=== PATIENT | female | born 1965 | race Caucasian/White ===

== ENCOUNTER 2019-04-19 12:50 | Emergency (ER) | payer OTHER ==
[~2019-04-19] VITALS: Ht 170.2 cm; Wt 86.2 kg
[2019-04-19] MEDS ORDERED: ASA5UEC PO (13:04)
[2019-04-19] MEDS ORDERED: CELEXA10 MG PO (13:04)
[2019-04-19] MEDS ORDERED: ONDANSETRON HCL4 M2 PO (14:15)
[2019-04-19] MEDS ORDERED: NORCO 5-325 TA1 EAC1 PO (14:15)
[2019-04-19 14:44] VITALS: BP 162/81
== END 2019-04-19 14:55 | disposition home or self-care (01) ==
LOC: ER 12:50
DX: S09.8XXA Other specified injuries of head, initial encounter (principal); Z88.1 Allergy status to other antibiotic agents; Z88.8 Allergy status to other drugs, medicaments and biological substances; W01.0XXA Fall on same level from slipping, tripping and stumbling without subsequent striking against object, initial encounter; Y93.89 Activity, other specified; Y92.89 Other specified places as the place of occurrence of the external cause; Y99.0 Civilian activity done for income or pay

== ENCOUNTER 2019-04-22 19:10 | Emergency (ER) | payer OTHER ==
[~2019-04-22] VITALS: Ht 170.2 cm; Wt 88.5 kg
[~2019-04-22 19:10] MED LIST: ASA5UEC PO; CELEXA10 MG PO; NORCO 5-325 TA1 EAC1 PO; ONDANSETRON HCL4 M2 PO
[2019-04-22] MEDS ORDERED: SUMATRIPTAN-NA1 EACH PO (20:36)
[2019-04-22] MEDS ORDERED: IBUPROFEN 800800 M1 PO (20:37)
[2019-04-23] MEDS ORDERED: OXYCODONE HCL 55 MG PO (00:42)
[2019-04-23 01:02] VITALS: BP 175/97
== END 2019-04-23 01:03 | disposition home or self-care (01) ==
LOC: ER 19:10
DX: F07.81 Postconcussional syndrome (principal); Z88.8 Allergy status to other drugs, medicaments and biological substances

== ENCOUNTER 2019-04-29 13:31 | Inpatient (IN) | payer OTHER ==
[~2019-04-29] VITALS: Ht 170.2 cm; Wt 88.5 kg
[~2019-04-29 13:31] MED LIST changes: +IBUPROFEN 800800 M1 PO; +OXYCODONE HCL 55 MG PO; +SUMATRIPTAN-NA1 EACH PO
[2019-04-29 13:37] VITALS: BP 206/122
[2019-04-29 14:26] LABS: BASOPHILS 0.6 % (0.0-2.0); EOSINOPHILS 3.2 % (0.0-3.0); HEMATOCRIT 40.3 % (37.0-47.0); HEMOGLOBIN 13.7 gm/dL (12.0-15.0); LYMPHOCYTES 21.9 % (24.0-44.0); MCV 85.2 fL (80.0-100.0); MONOCYTES 9.6 % (1.0-8.0); PLATELET COUNT 264 thou/uL (150-400); POLYS 64.7 % (36.0-66.0); RBC 4.73 mil/uL (4.20-5.00); RDW 13.5 % (10.5-14.5); WBC 6.1 thou/uL (4.0-11.0)
[2019-04-29 14:40] LABS: CALCIUM 8.7 mg/dL (8.5-10.1); CREATININE 0.8 mg/dL (0.6-1.0); POTASSIUM 3.4 mmol/L (3.5-5.1)
[2019-04-29 14:49] LABS: ALBUMIN 4.1 g/dL (3.4-5.0); TOTAL BILIRUBIN 0.7 mg/dL (<0.1-1.0); TOTAL PROTEIN 7.3 g/dL (6.4-8.2)
[2019-04-29 14:49] LABS: URINE BILIRUBIN NEGATIVE (Negative); URINE BLOOD NEGATIVE (Negative); URINE CLARITY CLEAR; URINE COLOR YELLOW; URINE GLUCOSE-RANDOM* NEGATIVE (Negative); URINE KETONES NEGATIVE (Negative); URINE LEUKOCYTES-REFLEX NEGATIVE (Negative); URINE NITRITE-REFLEX NEGATIVE (Negative); URINE PROTEIN (DIPSTICK) NEGATIVE (Negative)
[2019-04-29 15:03] LABS: MAGNESIUM 2.3 mg/dL (1.8-2.4); TROPONIN-I <0.06 ng/mL (<0.06)
[2019-04-29] MEDS ORDERED: AMLODIPINE BESY10 MG PO (15:21)
[2019-04-29] MEDS ORDERED: NITROGLYCERIN0.4 MG SUBLING (15:21)
[2019-04-29] MEDS ORDERED: COREG25 MG PO (15:21)
[2019-04-29] MEDS ORDERED: LISINOPRIL40 MG PO (15:21)
[2019-04-29] MEDS ORDERED: HYDROCHLOROTH12.5 M1 PO (15:21)
[2019-04-29 17:39] VITALS: BP 161/99
[2019-04-29 17:52] VITALS: BP 158/98
[2019-04-29 18:36] VITALS: BP 168/92
--- NOTE | 2019-04-29 19:23 | NUR ---
Received pt from the ER, with fiance at thebed side. Pt is complaining of a headache, ketoralac given no releif was noted. Admission requirements completed. Pt tried to have her dinner but only had as few bites. POC followed, endorsed to the night nurse.
[2019-04-29] MEDS ORDERED: CELEXA40 MG PO (19:59)
[2019-04-29 20:57] VITALS: BP 166/91
[2019-04-30 00:47] VITALS: BP 138/81
--- NOTE | 2019-04-30 04:04 | NUR ---
ASSESSMENT: PT REMAIN ALERT AND ORIENT TIMES FOUR. UP AD YADIEL TO BR WITH SBA. C/O CHAPMAN, RATING FROM 6-9/10 ON NUMERIC PAIN SCALE. PT STATE THAT THE LIGHT DOES NOT MAKE HER CHAPMAN WORSE AND SHE DENIES FEELING NAUSEA. PT STATE THAT TORADOL AND THE HYDROCODONE BARELY TAKES THE "EDGE OFF". DID GET A ONE TIME ORDER OF FENTANYL 25 MCG. BP ELEVATED AT THE BEGINNING OF THE SHIFT THAT DID DECREASE DURING THE NIGHT. AT THE BEDSIDE. TOLERATING PO INTAKE. NEURO WAS IN TO SEE PT THIS EVENING. NEURO ASSESSMENT DONE. PT C/O PAIN IN THE CAROTID AREA THAT RADIATE DOWN TOP OF SHOULDER FROM TIME TO TIME. SLOW PROGRESS, WILL CONTINUE TO MONITOR.
[2019-04-30 04:31] VITALS: BP 129/78
[2019-04-30 06:18] LABS: CALCIUM 8.6 mg/dL (8.5-10.1); CREATININE 0.8 mg/dL (0.6-1.0); POTASSIUM 3.8 mmol/L (3.5-5.1)
[2019-04-30 08:00] VITALS: BP 144/83
--- NOTE | 2019-04-30 11:01 | NUR ---
PT WENT FOR MRI AT THIS TIME.
[2019-04-30 16:00] VITALS: BP 127/76
[2019-04-30 20:02] VITALS: BP 184/96
[2019-04-30 21:00] VITALS: BP 107/58
--- NOTE | 2019-05-01 03:47 | NUR ---
ASSUMED CARE AROUND 1900. AXOX4. PERSISTENT HEADACHE. SEEN BY FROM NEUROLOGY. TORADOL D/C AND STARTED ON MEDROL PACK THIS SHIFT. NO S/S ACUTE DISTRESS NOTED OR REPORTED AT THIS TIME. WILL CONT TO MONITOR FOR ANY CHANGES IN CONDITION.
[2019-05-01 04:51] VITALS: BP 121/73
[2019-05-01] MEDS ORDERED: NORCO 5-325 TA1 EAC1 PO (09:01)
[2019-05-01] MEDS ORDERED: MEDROLDOSEPACK PO (09:01)
[2019-05-01 09:13] VITALS: BP 121/73
[2019-05-01 09:19] VITALS: BP 127/77
[2019-05-01 09:51] VITALS: BP 127/77
--- NOTE | 2019-05-01 10:04 | NUR ---
DIS PT DC. IV DC'D. DC PACKET AND MED SCRIPTS PROVIDED.
--- NOTE | 2019-05-01 19:47 | EKG ---
[address] [address] ELECTROCARDIOGRAM REPORT Name: MEREDITH JACKSONNA Room #: 464-P [facility] IN M.R.#: [id number] ������������������ Admission: 04/29/19 ������������������ Attend Phys: Pedro Jay MD Discharge: 05/01/19 ������������������ Date of : 65 Report #: [id number] ����������������������������������������������������������������� [id number] THIS REPORT FOR: //name// [facility] ED Test Date: 2019-04-29 Test Time: 13:41:22 Pat Name: CINTHIA JACKSON Department: Room: Pending sale to [facility] Gender: F Test Consultant: MERLYN : 1965 Requested By: Christopher Ritter Order Number: [id number] MD: Duane Baltazar Measurements Intervals [place] Rate: 98 P: 17 DC: 167 QRS: -19 QRSD: 97 T: 52 QT: 359 QTc: 459 Interpretive Statements Sinus rhythm Probable left atrial enlargement Left ventricular hypertrophy Inferior infarct, old Anterior Q waves, possibly due to LVH No previous ECG available for comparison Electronically Signed On 05-01-2019 19:47:15 CDT by Duane Baltazar [email or web address] ��������������������������������������������� <ELECTRONICALLY SIGNED> ���������������������������������������� By: Duane Baltazar MD ��������������������������������������������� 05/01/19 1947 1341 134 Duane Baltazar MD /EPI
== END 2019-05-01 10:09 | disposition home or self-care (01) | DRG 103 ==
LOC: ER 13:31 → EROBS 17:14 → 4W 18:12
PROVIDERS: Emergency Medicine; ADMIT Hospitalist
DX: G44.209 Tension-type headache, unspecified, not intractable (principal); I48.91 Unspecified atrial fibrillation; H57.02 Anisocoria; F07.81 Postconcussional syndrome; I10 Essential (primary) hypertension; G43.909 Migraine, unspecified, not intractable, without status migrainosus; Z88.1 Allergy status to other antibiotic agents; Z88.8 Allergy status to other drugs, medicaments and biological substances; Z79.82 Long term (current) use of aspirin; Z79.899 Other long term (current) drug therapy
CPT/HCPCS: 10040

== ENCOUNTER 2019-05-02 03:14 | Inpatient (IN) | payer OTHER ==
[~2019-05-02] VITALS: Ht 170.2 cm; Wt 86.2 kg
[~2019-05-02 03:14] MED LIST changes: +AMLODIPINE BESY10 MG PO; +CELEXA40 MG PO; +COREG25 MG PO; +HYDROCHLOROTH12.5 M1 PO; +LISINOPRIL40 MG PO; +MEDROLDOSEPACK PO; +NITROGLYCERIN0.4 MG SUBLING
[2019-05-02 03:57] LABS: ANION GAP 4 mmol/L (7-16); BUN 23 mg/dL (7-18); CALCIUM 9.6 mg/dL (8.5-10.1); CHLORIDE 95 mmol/L (98-107); CO2 24 mmol/L (21-32); CREATININE 0.9 mg/dL (0.6-1.0); GLUCOSE 205 mg/dL (74-106); POTASSIUM 4.4 mmol/L (3.5-5.1); SODIUM 123 mmol/L (136-145); TROPONIN-I <0.06 ng/mL (<0.06)
[2019-05-02 03:58] LABS: BASOPHILS 0.3 % (0.0-2.0); EOSINOPHILS 0.1 % (0.0-3.0); HEMATOCRIT 39.9 % (37.0-47.0); HEMOGLOBIN 13.7 gm/dL (12.0-15.0); LYMPHOCYTES 10.6 % (24.0-44.0); MCH 29.1 pg (26.0-34.0); MCHC 34.2 g/dL (28.0-37.0); MCV 85.1 fL (80.0-100.0); MONOCYTES 2.8 % (1.0-8.0); PLATELET COUNT 303 thou/uL (150-400); POLYS 86.2 % (36.0-66.0); RBC 4.69 mil/uL (4.20-5.00); RDW 13.2 % (10.5-14.5); WBC 10.4 thou/uL (4.0-11.0)
[2019-05-02 09:07] LABS: URINE CREATININE-RANDOM* 32.5 mg/dL
--- NOTE | 2019-05-02 12:40 | 2DMMODE ---
[facility] [place] [address] 2 D/M-MODE ECHOCARDIOGRAM Name: CINTHIA JACKSON Room #: 170-9 ADM IN ..#: [id number] ������������� Admission: 05/02/19 ������������� Attend Phys: Pedro Jay MD Discharge: ��� ������������� ��� Date of : 65 Date of Service: 05/02/19 1240 �� Report #: [id number] �������� ��������������������������������������������[id number] THIS REPORT FOR: //name// APPROVED REPORT Study performed: 05/02/2019 11:28:24 EXAM: Comprehensive 2D, Doppler, and color-flow Echocardiogram Patient Location: ER Room #: 9 Status: routine BSA: 1.98 HR: 96 bpm BP: 113/76 mmHg Rhythm: Atrial Fibrillation Other Information Study Quality: Fair Indications Atrial Fibrillation Hypertension/HDD Bicuspid Aortic Valve 2D Dimensions RVDd: 39.50 mm IVSd: 9.43 (7-11mm) LVOT Diam: 19.37 (18-24mm) LVDd: 43.55 mm PWd: 11.24 (7-11mm) Ascending Ao: 40.43 (22-36mm) LVDs: 27.51 (25-40mm) Aortic Root: 39.82 mm IVC: 14.00 mm Volumes Left Atrial Volume (Systole) Single Plane 4CH: 53.62 mL Single Plane 2CH: 61.24 mL LA ESV Index: 34.00 mL/m2 Aortic Valve AoV Peak Luca.: 1.93 m/s AO Peak Gr.: 23.52 mmHg LVOT Max P.51 mmHg LVOT Max V: 1.06 m/s ADELINE Vmax: 1.62 cm2 Mitral Valve MV Decel. Time: 129.73 ms [facility] [place] [address] 2 D/M-MODE ECHOCARDIOGRAM Name: CINTHIA JACKSON Room #: 1709 ADM IN [facility].#: [id number] ������������� Admission: 05/02/19 ������������� Attend Phys: Pedro Jay MD Discharge: ��� ������������� ��� Date of : 65 Date of Service: 05/02/19 1240 �� Report #: [id number] �������� ��������������������������������������������[id number] MV E Max Luca.: 0.96 m/s Pulmonary Valve PV Peak Luca.: 0.78 m/s PV Peak Gr.: 2.57 mmHg Tricuspid Valve TR Peak Luca.: 2.03 m/s TR Peak Gr.: 16.43 mmHg Left Ventricle The left ventricle is normal size. There is normal left ventricular wall thickness. The left ventricular systolic function is normal. The left ventricular ejection fraction is within the normal range. LVEF is 55-60%. This study is not technically sufficient to allow evaluation of the LV diastolic function due to atrial fibrillation. Right Ventricle The right ventricle is normal size. The right ventricular systolic function is normal. Atria The left atrium size is normal. The right atrium size is normal. Aortic Valve Aortic valve is bicuspid. Mild aortic regurgitation. There is no aortic valvular stenosis. Mitral Valve The mitral valve is normal in structure. Mild mitral regurgitation. No evidence of mitral valve stenosis. Tricuspid Valve The tricuspid valve is normal in structure. Mild tricuspid regurgitation. Estimated PAP is 21mmHg. Pulmonic Valve The pulmonary valve is normal in structure. Mild pulmonic regurgitation. Great Vessels Aortic root is mildly dilated. Ascending aorta is mildly dilated. IVC is normal in size and collapses >50% with inspiration. [facility] [place] [address] 2 D/M-MODE ECHOCARDIOGRAM Name: CINTHIA JACKSON Room #: 170-9 ADM IN M.R.#: [id number] ������������� Admission: 05/02/19 ������������� Attend Phys: Pedro Jay MD Discharge: ��� ������������� ��� Date of : 65 Date of Service: 05/02/19 1240 �� Report #: [id number] �������� ��������������������������������������������[id number] Pericardium There is no pericardial effusion. <Conclusion> The left ventricle is normal size. LVEF is 55-60%. Aortic valve is bicuspid. Mild aortic regurgitation. The mitral valve is normal in structure. Mild mitral regurgitation. The tricuspid valve is normal in structure. Mild tricuspid regurgitation. Estimated PAP is 21mmHg. The pulmonary valve is normal in structure. Mild pulmonic regurgitation. Aortic root is mildly dilated. Ascending aorta is mildly dilated. There is no pericardial effusion. ��������������������������������������������� <ELECTRONICALLY SIGNED> ���������������������������������������� By: Edil Barnes MD ��������������������������������������������� 05/02/19 1240 1240 1240 Edil Barnes MD /INF
[2019-05-02 15:08] VITALS: BP 118/81
--- NOTE | 2019-05-02 15:51 | NUR ---
PT ORIENTED TO ROOM AND UNIT. BED LOW AND LOCKED, SIDE RIALS UP X 3, CALL IGHT IN REACH. TELE APPLIED AND SAFETY LETTER GIVEN TO PATIENT. WILL CONTINUE TO ASSESS.
[2019-05-02 15:55] VITALS: BP 123/60
[2019-05-02 16:34] VITALS: BP 123/60
--- NOTE | 2019-05-02 18:28 | NUR ---
TALK TO DR. DELACRUZ AND OBTAINED ORDER FOR LOVENOX SQ AND SCDS PLACED BILATO ON PT.
[2019-05-02 20:24] VITALS: BP 102/65
--- NOTE | 2019-05-02 23:00 | NUR ---
PT SINUS NADINE RATE 49. CARDIZEM GTT STOPPED. VSS WILL CONT TO MONITOR.
[2019-05-03] VITALS: BP 107/66
[2019-05-03 04:59] VITALS: BP 131/79
[2019-05-03 05:37] LABS: CALCIUM 8.7 mg/dL (8.5-10.1); CREATININE 0.8 mg/dL (0.6-1.0); POTASSIUM 4.3 mmol/L (3.5-5.1)
--- NOTE | 2019-05-03 06:00 | NUR ---
PT RESTING QUIETLY. PAIN MEDS PRN. SLEPT AT INTERVALS TONIGHT. GETS UP TO TOILET. LUNGS CLEAR. REMAINS IN SINUS NADINE RATE 53. CARDIZEM GTT OFF SINCE 2299. PT IS SO THRILLED THAT SHE IS BACK TO A REGULAR RHYTHM. A VERY SWEET LITTLE LADY. WILL CONT TO MONITOR CLOSELY.
[2019-05-03 08:07] VITALS: BP 150/86
[2019-05-03 11:17] VITALS: BP 172/90
[2019-05-03 13:01] VITALS: BP 172/90
[2019-05-03] MEDS ORDERED: XARELTO20 MG PO (13:10)
[2019-05-03] MEDS ORDERED: ASA5UEC PO (13:11)
[2019-05-03] MEDS ORDERED: CARVEDILOL12.5 MG PO (13:11)
[2019-05-03] MEDS ORDERED: FLECAINIDE ACET50 M1 PO (13:11)
[2019-05-03] MEDS ORDERED: AMLODIPINE BESY10 MG PO (13:15)
[2019-05-03] MEDS ORDERED: LISINOPRIL40 MG PO (13:15)
[2019-05-03 13:52] VITALS: BP 172/90
--- NOTE | 2019-05-03 14:57 | NUR ---
ASSUMED CARE OF PT AT SHIFT CHANGE. ASSESSMENTS COMPLETED. VITALS STABLE. C/O PAIN IN NECK MANAGED WITH PO AND IV MEDS. SR ON MONITOR. LOOP RECORDER SITE CDI. DC ORDERS ACKNOWLEDGED. DC INSTRUCTIONS DISCUSSED WITH PT. UNDERSTANDING CONFIRMED. IV REMOVED, TELE REMOVED. PT LEFT UNIT AT APPROX 1450 WITH ALL BELONGINGS.
--- NOTE | 2019-05-03 15:21 | NUR ---
REVIEWED NURSE BARAHONA'S ASSESSMENTS, MEDICATION ADMINISTRATION, AND NOTES. AGREE WITH ASSESSMENTS, MEDS, AND NOTES.
--- NOTE | 2019-05-03 18:16 | EKG ---
[place] [address] [facility] [place] [address] ELECTROCARDIOGRAM REPORT Name: CINTHIA JACKSON Room #: 204-P [facility] IN M.R.#: [id number] ������������������ Admission: 05/02/19 ������������������ Attend Phys: Pedro Jay MD Discharge: 05/03/19 ������������������ Date of : 65 Report #: [id number] ����������������������������������������������������������������� [id number] THIS REPORT FOR: //name// [facility] ED Test Date: 2019-05-02 Test Time: 03:15:25 Pat Name: CINTHIA JACKSON Department: Room: [facility] Gender: F Accounts Payable Clerk: WINIFRED : 1965 Requested By: Pete Chew Order Number: [id number] MD: Lit Wang Measurements Intervals [place] Rate: 162 P: ND: QRS: -7 QRSD: 94 T: 81 QT: 250 QTc: 411 Interpretive Statements Atrial fibrillation Abnormal R-wave progression, late transition LVH with secondary repolarization abnormality Compared to ECG 04/29/2019 13:41:22 Atrial fibrillation has replaced sinus rhythm ST and T wave abnormality is more pronounced Electronically Signed On 05-03-2019 18:15:46 CDT by Lit Wang [email or web address] ��������������������������������������������� <ELECTRONICALLY SIGNED> ���������������������������������������� By: Lit Wang MD, [facility] ��������������������������������������������� 05/03/19 1815 4 Lit Wang MD, [facility] /EPI
--- NOTE | 2019-05-04 12:11 | P ---
[facility] [place] [address] [place] [address] PROCEDURE REPORT Name: CINTHIA JCAKSON Room #: 204-P [facility] IN M.R.#: [id number] Admission: 05/02/19 ������������������ Attend Phys: Pedro Jay MD Discharge: 05/03/19 ������������������ Date of : 65 Report #: [id number] THIS REPORT FOR: //name// CC: Pedro CASTILLO unknown PROCEDURE: LR implantation. PREOPERATIVE DIAGNOSIS: AFib. POSTOPERATIVE DIAGNOSIS: AFib. DESCRIPTION OF PROCEDURE: The patient underwent informed consent. She was prepped and draped in a sterile fashion. I injected lidocaine at the incision site. Incision was made. The device was injected under the skin. There was some continued bleeding. Therefore, I used a little electrocautery to take care of this. I performed 2 layers of suture and surgical glue to the outer skin layer. There were no procedure related complications. The implanted device was a Confirm model #3500, serial #[id number]. The device is set to its nominal settings. ��������������������������������������������� <ELECTRONICALLY SIGNED> ���������������������������������������� By: Duane Baltazar MD ��������������������������������������������� 05/04/19 1211 1130 1244 Duane Baltazar MD /nt
== END 2019-05-03 14:53 | disposition home or self-care (01) | DRG 261 ==
LOC: ER 03:14 → 2N 04:56 → EROBS 04:56 → 2N 15:47 → ENTRNSPT 05-03 14:35 → EDTRNSPTSTS 05-03 14:48 → 2N 05-03 14:53
PROVIDERS: Emergency Medicine; Nurse Practitioner Family; ADMIT Hospitalist
PROC: 0JH602Z Insertion of Monitoring Device into Chest Subcutaneous Tissue and Fascia, Open Approach (ICD-10-PCS; principal; 2019-05-03)
DX: I48.0 Paroxysmal atrial fibrillation (principal); E87.1 Hypo-osmolality and hyponatremia; Q23.1 Congenital insufficiency of aortic valve; I10 Essential (primary) hypertension; F32.9 Major depressive disorder, single episode, unspecified; R79.89 Other specified abnormal findings of blood chemistry; G43.909 Migraine, unspecified, not intractable, without status migrainosus; Z90.49 Acquired absence of other specified parts of digestive tract; Z98.891 History of uterine scar from previous surgery; Z90.710 Acquired absence of both cervix and uterus; Z79.82 Long term (current) use of aspirin; Z87.828 Personal history of other (healed) physical injury and trauma; Z79.899 Other long term (current) drug therapy; Z88.8 Allergy status to other drugs, medicaments and biological substances; Z82.3 Family history of stroke; Z81.1 Family history of alcohol abuse and dependence; Z82.49 Family history of ischemic heart disease and other diseases of the circulatory system
CPT/HCPCS: 10081

== ENCOUNTER 2019-11-28 20:08 | Emergency (ER) | payer OTHER ==
[~2019-11-28] VITALS: Ht 170.2 cm; Wt 86.2 kg
[~2019-11-28 20:08] MED LIST changes: +ACETAMINOPHEN500 MG PO; +ASA81BEC PO; +CARVEDILOL12.5 MG PO; +CELEXA 20 MG TA20 MG PO; +FLECAINIDE ACET50 M1 PO; +NITROSTAT0.4 MG SUBLING; +TRAMADOL 50 MG50 MG PO; +XARELTO20 MG PO; +ZESTRIL40 MG PO
[2019-11-28] MEDS ORDERED: PREDNISONE 10 M10 MG PO (21:10)
[2019-11-28] MEDS ORDERED: NORCO 5-325 TA1 EAC1 PO (21:10)
[2019-11-28] MEDS ORDERED: NORFLEX100 MG PO (21:10)
[2019-11-28 21:15] VITALS: BP 187/112
== END 2019-11-28 21:35 | disposition home or self-care (01) ==
LOC: ER 20:08
DX: M54.30 Sciatica, unspecified side (principal); M54.9 Dorsalgia, unspecified; I48.0 Paroxysmal atrial fibrillation; I10 Essential (primary) hypertension; Z88.4 Allergy status to anesthetic agent; Z88.8 Allergy status to other drugs, medicaments and biological substances

== ENCOUNTER 2019-12-26 18:34 | Emergency (ER) | payer OTHER ==
[~2019-12-26] VITALS: Ht 170.2 cm; Wt 86.2 kg
[~2019-12-26 18:34] MED LIST changes: +NORFLEX100 MG PO; +PREDNISONE 10 M10 MG PO
[2019-12-26] MEDS ORDERED: XARELTO20 MG PO (18:42)
[2019-12-26] MEDS ORDERED: NORVASC5 M1 PO (18:43)
[2019-12-26] MEDS ORDERED: PROTONIX40 M3 PO (18:44)
[2019-12-26 19:46] LABS: ABSOLUTE NEUTROPHILS 4.2 thou/uL (1.4-8.2); BASOPHILS 0.3 % (0.0-2.0); EOSINOPHILS 1.6 % (0.0-3.0); HEMATOCRIT 40.2 % (37.0-47.0); LYMPHOCYTES 31.2 % (24.0-44.0); MCHC 32.4 g/dL (28.0-37.0); MCV 86.2 fL (80.0-100.0); MONOCYTES 8.7 % (1.0-8.0); PLATELET COUNT 227 thou/uL (150-400); POLYS 58.2 % (36.0-66.0); RBC 4.66 mil/uL (4.20-5.00); RDW 14.2 % (10.5-14.5); WBC 7.1 thou/uL (4.0-11.0)
[2019-12-26 19:48] LABS: ANION GAP 3 mmol/L (7-16); BUN 22 mg/dL (7-18); CALCIUM 9.1 mg/dL (8.5-10.1); CHLORIDE 101 mmol/L (98-107); CO2 30 mmol/L (21-32); CREATININE 0.9 mg/dL (0.6-1.0); GLUCOSE 120 mg/dL (74-106); POTASSIUM 3.7 mmol/L (3.5-5.1); SODIUM 134 mmol/L (136-145)
[2019-12-26 19:58] LABS: ALBUMIN 4.1 g/dL (3.4-5.0); SGOT 16 U/L (15-37); SGPT 28 U/L (30-65); TOTAL BILIRUBIN 0.3 mg/dL (<0.1-1.0); TOTAL PROTEIN 7.1 g/dL (6.4-8.2); TROPONIN-I <0.06 ng/mL (<0.06)
[2019-12-26 21:14] VITALS: BP 134/80
--- NOTE | 2019-12-27 08:52 | EKG ---
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: NO : 1965 Requested By: Sonia Orona Order Number: [id number] MD: Lit Wang Measurements Intervals [place] Rate: 60 P: 12 ID: 180 QRS: -17 QRSD: 106 T: 4 QT: 433 QTc: 433 Interpretive Statements Sinus rhythm Abnormal R-wave progression, late transition Left ventricular hypertrophy Inferior infarct, old Lateral leads are also involved Compared to ECG 08/23/2019 06:57:39 No significant change was found Electronically Signed On 12-27-2019 8:50:47 CDT by Lit Wang [email or web address] <ELECTRONICALLY SIGNED> By: Lit Wang MD, [facility] 12/27/19 0850 13 13 Lit Wang MD, [facility] /EPI
--- NOTE | 2019-12-27 14:28 | EKG ---
[facility] [place] [address] ELECTROCARDIOGRAM REPORT Name: CINTHIA JACKSON Room #: DEP [facility]#: [id number] Admission: 12/26/19 Attend Phys: Discharge: 12/26/19 Date of : 65 Report #: [id number] THIS REPORT FOR: cc: ANNA - Linda family physician/PCP ANNA - Linda family physician/PCP Lit Wang MD [facility] THIS REPORT FOR: //name// [facility] ED Test Date: 2019-12-26 Test Time: 18:44:30 Pat Name: CINTHIA JACKSON Department: Room: Gender: Heel Reducer: : 1965 Requested By: Sonia Orona Order Number: [id number] MD: Lit Wang Measurements Intervals [place] Rate: 63 P: 8 MT: 177 QRS: -19 QRSD: 107 T: 10 QT: 434 QTc: 445 Interpretive Statements Sinus rhythm Abnormal R-wave progression, late transition Left ventricular hypertrophy Inferior infarct, old Lateral leads are also involved Baseline wander in lead(s) V2,V3,V5,V6 No previous ECGs available for comparison Electronically Signed On 12-27-2019 14:27:28 CDT by Lit Wang [email or web address] <ELECTRONICALLY SIGNED> By: Lit Wang MD, FAC 12/27/19 1427 1844 1844 Lit Wang MD, FAC /EPI
== END 2019-12-26 21:26 | disposition home or self-care (01) ==
LOC: ER 18:34
PROVIDERS: Physician Assistant
DX: J06.9 Acute upper respiratory infection, unspecified (principal); I48.91 Unspecified atrial fibrillation; I10 Essential (primary) hypertension; Z79.899 Other long term (current) drug therapy; Z79.82 Long term (current) use of aspirin; Z88.8 Allergy status to other drugs, medicaments and biological substances; Z88.1 Allergy status to other antibiotic agents

== ENCOUNTER 2020-07-31 19:25 | Inpatient (IN) | payer OTHER ==
[~2020-07-31] VITALS: Ht 170.2 cm; Wt 79.4 kg
[~2020-07-31 19:25] MED LIST changes: +NORVASC5 M1 PO; +PROTONIX40 M3 PO
[2020-07-31 19:29] VITALS: BP 142/81
[2020-07-31 20:08] LABS: ABSOLUTE NEUTROPHILS 4.5 thou/uL (1.4-8.2); BASOPHILS 0.4 % (0.0-2.0); EOSINOPHILS 4.1 % (0.0-3.0); HEMATOCRIT 37.2 % (37.0-47.0); HEMOGLOBIN 12.5 gm/dL (12.0-15.0); LYMPHOCYTES 28.6 % (24.0-44.0); MCH 28.6 pg (26.0-34.0); MCHC 33.6 g/dL (28.0-37.0); MCV 85.1 fL (80.0-100.0); MONOCYTES 9.1 % (1.0-8.0); PLATELET COUNT 277 thou/uL (150-400); POLYS 57.8 % (36.0-66.0); RBC 4.37 mil/uL (4.20-5.00); RDW 14.1 % (10.5-14.5); WBC 7.7 thou/uL (4.0-11.0)
[2020-07-31] MEDS ORDERED: TOPROL XL25 MG PO (20:12)
[2020-07-31] MEDS ORDERED: FLECAINIDE ACET50 M2 PO (20:12)
[2020-07-31] MEDS ORDERED: COLCRYS0.6 MG PO (20:14)
[2020-07-31] MEDS ORDERED: PERCOCET 5-3251 EACH PO ×2 (20:15→20:16)
[2020-07-31 20:18] LABS: ANION GAP 13 mmol/L (7-16); BUN 11 mg/dL (7-18); CHLORIDE 102 mmol/L (98-107); CO2 25 mmol/L (21-32); CREATININE 0.9 mg/dL (0.6-1.0); GLUCOSE 109 mg/dL (74-106); POTASSIUM 3.4 mmol/L (3.5-5.1); SODIUM 140 mmol/L (136-145)
[2020-07-31 20:28] LABS: ALBUMIN 4.2 g/dL (3.4-5.0); SGOT 20 U/L (15-37); SGPT 30 U/L (30-65); TOTAL BILIRUBIN 0.5 mg/dL (0.2-1.0); TOTAL PROTEIN 7.3 g/dL (6.4-8.2); TROPONIN-I <0.06 ng/mL (<0.06)
--- NOTE | 2020-07-31 21:31 | NUR ---
PT STATES MORPHINE CAUSES CHEST PAIN AND NAUSEA.
[2020-07-31 22:07] VITALS: BP 133/77
--- NOTE | 2020-07-31 22:13 | NUR ---
TRIED TO CALL REPORT. NURSE IS UNAVAILABLE.
[2020-07-31 22:54] VITALS: BP 120/75
[2020-08-01 05:50] VITALS: BP 98/68
--- NOTE | 2020-08-01 06:14 | NUR ---
ASSUME CARE 1900. PT/VITALS STABLE. INTERMITTENT CHEST PAIN NOTED WITH MODERATE RELIEF FROM PAIN MED. GOOD ENURANCE WITH ACTIVITY. SR ON MONITOR. NO DISTRESS NOTED. PT FOLLOWS WITH CARDIOLOGY TEAM AT [facility]. PLAN IS POSSIBLE TRANSFER TO [facility] TELE BED TODAY FOR CONTINUM OF CARE, SINCE THEY SAW PT JUST 3 DAYS AGO. WILL CONTINUE TO MONITOR AND FOLLOW WITH POC
[2020-08-01 07:00] VITALS: BP 108/64
--- NOTE | 2020-08-01 08:55 | EKG ---
[facility] [place] [address] [address] ELECTROCARDIOGRAM REPORT Name: CINTHIA JACKSON Room #: 200-I ADM IN M.R.#: [id number] Admission: 07/31/20 Attend Phys: Pedro Jay MD Discharge: Date of : 65 Report #: [id number] THIS REPORT FOR: cc: Tez Max MD, Andrea B. 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: : 1965 Requested By: Zelda Rodriguez Order Number: [id number] MD: Lit Wang Measurements Intervals [place] Rate: 74 P: 8 AL: 187 QRS: -20 QRSD: 100 T: 28 QT: 424 QTc: 471 Interpretive Statements Sinus rhythm Abnormal R-wave progression, late transition Left ventricular hypertrophy Inferior infarct, old Baseline wander in lead(s) V1 Compared to ECG 12/26/2019 19:14:33 No significant changes Electronically Signed On 08-01-2020 8:54:55 CDT by Lit Wang [email or web address] <ELECTRONICALLY SIGNED> By: Lit Wang MD, FACC 08/01/20 0854 36 36 Lit Wang MD, FACC /EPI
[2020-08-01] MEDS ORDERED: COLCRYS0.6 MG PO ×2 (10:23→10:45)
[2020-08-01] MEDS ORDERED: PROTONIX 20 MG20 M1 PO (10:23)
[2020-08-01] MEDS ORDERED: TRAMADOL 50 MG50 MG PO (10:23)
[2020-08-01 10:54] VITALS: BP 108/64
--- NOTE | 2020-08-01 11:44 | NUR ---
ASSUMED CARE PT SHIFT CHANGE. ASSESSMENT CHARTED.MEDS GIVEN PER DEC. PT ALERT AND ORIENTED.VSS. C/O CHEST PAIN MANAGED WITH PO AND IV PAIN MEDS. PT UP AD YADIEL TOLERATING WELL. PT PREFERS TO CONTINUE WITH CARE BEING RECEIVED FROM [place]. ST STABLE FOR DC PER PHYSICIAN. DC PAPERWORK DISCUSSED WITH PT. COMMUNICATES UNDERSTANDING. IV REMOVED TELE REMOVED PT LEFT UNIT WITH ALLBELONGINGS.
== END 2020-08-01 11:40 | disposition home or self-care (01) | DRG 316 ==
LOC: ER 19:25 → 2N 22:06 → EROBS 22:06 → 2N 22:39
PROVIDERS: Physician Assistant; ADMIT Hospitalist; ATTEND Hospitalist
DX: I31.9 Disease of pericardium, unspecified (principal); I71.9 Aortic aneurysm of unspecified site, without rupture; I48.0 Paroxysmal atrial fibrillation; I10 Essential (primary) hypertension; Z88.6 Allergy status to analgesic agent; Z88.8 Allergy status to other drugs, medicaments and biological substances; Z90.710 Acquired absence of both cervix and uterus; Z90.49 Acquired absence of other specified parts of digestive tract; Z82.49 Family history of ischemic heart disease and other diseases of the circulatory system; Z79.01 Long term (current) use of anticoagulants; Z79.82 Long term (current) use of aspirin; Z79.899 Other long term (current) drug therapy; Z81.1 Family history of alcohol abuse and dependence; Z82.3 Family history of stroke
CPT/HCPCS: 10081

== ENCOUNTER 2020-08-27 17:30 | Emergency (ER) | payer OTHER ==
[~2020-08-27] VITALS: Ht 170.2 cm; Wt 79.4 kg
[~2020-08-27 17:30] MED LIST changes: +COLCRYS0.6 MG PO; +FLECAINIDE ACET50 M2 PO; +PERCOCET 5-3251 EACH PO; +PROTONIX 20 MG20 M1 PO; +TOPROL XL25 MG PO
[2020-08-28] LABS: BASOPHILS 0.4 % (0.0-2.0); EOSINOPHILS 2.3 % (0.0-3.0); HEMATOCRIT 36.7 % (37.0-47.0); LYMPHOCYTES 22.1 % (24.0-44.0); MCH 28.3 pg (26.0-34.0); MCHC 32.8 g/dL (28.0-37.0); MCV 86.4 fL (80.0-100.0); MONOCYTES 6.5 % (1.0-8.0); PLATELET COUNT 287 thou/uL (150-400); POLYS 68.7 % (36.0-66.0); RBC 4.24 mil/uL (4.20-5.00); WBC 7.3 thou/uL (4.0-11.0)
[2020-08-28 00:01] LABS: CALCIUM 9.3 mg/dL (8.5-10.1); CREATININE 0.9 mg/dL (0.6-1.0); POTASSIUM 3.8 mmol/L (3.5-5.1)
[2020-08-28 00:07] LABS: ALBUMIN 4.1 g/dL (3.4-5.0); DIRECT BILIRUBIN 0.1 mg/dL (<0.1-0.2); TOTAL BILIRUBIN 0.4 mg/dL (0.2-1.0); TOTAL PROTEIN 7.7 g/dL (6.4-8.2)
[2020-08-28 00:09] LABS: APTT 26.4 Seconds (24.5-32.8); PROTIME 10.1 Seconds (9.3-11.4)
[2020-08-28 03:15] VITALS: BP 141/71
--- NOTE | 2020-08-28 10:02 | EKG ---
[facility] [place] [address] ELECTROCARDIOGRAM REPORT Name: CINTHIA JACKSON Room #: DEP [facility]#: [id number] Admission: 08/27/20 Attend Phys: Discharge: 08/28/20 Date of : 65 Report #: [id number] THIS REPORT FOR: cc: Tez Max MD, Andrea B. MD Santiago, Patrick MD [facility] ~ THIS REPORT FOR: //name// [facility] ED Test Date: 2020-08-27 Test Time: 23:52:30 Pat Name: CINTHIA JACKSON Department: Room: Gender: F Non Destructive Evaluation Manager: Shawna : 1965 Requested By: Tawanna Trevino Order Number: [id number] MD: Tommie Dickens Measurements Intervals [place] Rate: 81 P: 19 AR: 170 QRS: -25 QRSD: 99 T: 12 QT: 393 QTc: 457 Interpretive Statements Sinus rhythm Abnormal R-wave progression, late transition Left ventricular hypertrophy Inferior infarct, old Compared to ECG 07/31/2020 19:37:32 No significant changes Electronically Signed On 08-28-2020 10:01:52 AUTOMOTIVE PARTS COORDINATOR by Tommie Dickens [email or web address] <ELECTRONICALLY SIGNED> By: Tommie Dickens MD, FACC 08/28/20 1001 2352 2352 Tommie Dickens MD, FAC /EPI
== END 2020-08-28 03:15 | disposition home or self-care (01) ==
LOC: ER 17:30
PROVIDERS: Emergency Medicine
DX: R10.31 Right lower quadrant pain (principal); R10.32 Left lower quadrant pain; D68.62 Lupus anticoagulant syndrome; I10 Essential (primary) hypertension; I48.91 Unspecified atrial fibrillation; Z79.899 Other long term (current) drug therapy; Z88.1 Allergy status to other antibiotic agents; Z88.5 Allergy status to narcotic agent; Z88.8 Allergy status to other drugs, medicaments and biological substances

== ENCOUNTER 2020-10-13 23:40 | Emergency (ER) | payer OTHER ==
[~2020-10-13] VITALS: Ht 170.2 cm; Wt 81.7 kg
[2020-10-13] MEDS ORDERED: BUPROPION XL150 MG PO (23:58)
[2020-10-13] MEDS ORDERED: TRAMADOL 50 MG50 MG PO (23:58)
[2020-10-13] MEDS ORDERED: AMLODIPINE BESY10 MG PO (23:59)
[2020-10-14 00:37] LABS: ANION GAP 12 mmol/L (7-16); BUN 10 mg/dL (7-18); CALCIUM 9.6 mg/dL (8.5-10.1); CHLORIDE 102 mmol/L (98-107); CO2 26 mmol/L (21-32); CREATININE 1.1 mg/dL (0.6-1.0); GLUCOSE 115 mg/dL (74-106); POTASSIUM 3.5 mmol/L (3.5-5.1); SODIUM 140 mmol/L (136-145)
[2020-10-14 00:45] LABS: PROTIME 10.3 Seconds (9.3-11.4)
[2020-10-14 00:47] LABS: ALBUMIN 4.3 g/dL (3.4-5.0); SGOT 25 U/L (15-37); SGPT 43 U/L (14-59); TOTAL BILIRUBIN 0.5 mg/dL (0.2-1.0); TOTAL PROTEIN 7.4 g/dL (6.4-8.2); TROPONIN-I <0.06 ng/mL (<0.06)
[2020-10-14 00:54] LABS: ABSOLUTE NEUTROPHILS 4.4 thou/uL (1.4-8.2); BASOPHILS 0.7 % (0.0-2.0); EOSINOPHILS 2.5 % (0.0-3.0); HEMOGLOBIN 12.8 gm/dL (12.0-15.0); LYMPHOCYTES 25.8 % (24.0-44.0); MCH 28.4 pg (26.0-34.0); MCHC 33.6 g/dL (28.0-37.0); MCV 84.6 fL (80.0-100.0); MONOCYTES 8.5 % (1.0-8.0); PLATELET COUNT 261 thou/uL (150-400); POLYS 62.5 % (36.0-66.0); RBC 4.49 mil/uL (4.20-5.00); RDW 12.7 % (10.5-14.5); WBC 7.1 thou/uL (4.0-11.0)
[2020-10-14 01:30] VITALS: BP 145/102
--- NOTE | 2020-10-14 09:33 | EKG ---
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: steffanie : 1965 Requested By: Seven Menendez Order Number: [id number] MD: Duane Baltazar Measurements Intervals [place] Rate: 71 P: 36 MN: 184 QRS: -15 QRSD: 109 T: 50 QT: 412 QTc: 448 Interpretive Statements Sinus rhythm Abnormal R-wave progression, late transition Left ventricular hypertrophy Inferior infarct, old Compared to ECG 08/27/2020 23:52:30 No significant changes Electronically Signed On 10-14-2020 9:33:[address] by Duane Baltazar [email or web address] <ELECTRONICALLY SIGNED> By: Duane Baltazar MD 10/14/20 0933 42 42 Duane Baltazar MD /[place]
== END 2020-10-14 01:30 | disposition left against medical advice (07) ==
LOC: ER 23:40
PROVIDERS: Emergency Medicine
DX: R07.9 Chest pain, unspecified (principal); Z20.828 Contact with and (suspected) exposure to other viral communicable diseases; M54.9 Dorsalgia, unspecified; I48.91 Unspecified atrial fibrillation; I10 Essential (primary) hypertension; Z79.899 Other long term (current) drug therapy; Z88.1 Allergy status to other antibiotic agents; Z88.6 Allergy status to analgesic agent; Z88.8 Allergy status to other drugs, medicaments and biological substances